=== PATIENT | male | born 1985 | race Caucasian/White ===

== ENCOUNTER 2021-07-08 14:25 | Emergency (ER) | payer OTHER ==
[2021-07-08 15:04] LABS: BASOPHIL 1.1 % (0-2); HCT 41.8 % (42.0-52.0); HGB 13.9 g/dl (13.2-18.0); LYMPHOCYTE 38.6 % (15-48); MCH 30.5 pg (25.0-31.0); MCHC 33.3 g/dL (32.0-36.0); MCV 91.7 fL (78.0-100.0); MPV 10.1 fL (6.0-9.5); NEUTROPHIL 48.1 % (41-80); NRBC 0; PLT 241 K/uL (150-400); RBC 4.56 M/uL (4.70-6.00); RDW 12.2 % (11.5-14.0); WBC 5.7 K/uL (4.0-10.5)
[2021-07-08 15:25] LABS: BUN/CREAT RATIO (CALC) 9.5 RATIO; CREATININE 0.95 mg/dL (0.67-1.17); POTASSIUM 3.7 mmol/L (3.5-5.1)
[2021-07-08 15:26] LABS: BILIRUBIN NEGATIVE (NEGATIVE); BLOOD NEGATIVE Ery/uL (NEGATIVE); CLARITY HAZY (CLEAR); COLOR YELLOW (YELLOW); GLUCOSE (U) NORMAL (NORMAL); LEUKOCYTES NEGATIVE Leu/uL (NEGATIVE); NITRITE NEGATIVE (NEGATIVE); PROTEIN NEGATIVE (NEGATIVE); SPECIFIC GRAVITY 1.015 (1.001-1.030); UROBILINOGEN 0.2 mg/dL (0.2-1.0); pH 7.5 (5.0-9.0)
[2021-07-08 15:29] LABS: AMPHETAMINES POSITIVE (NEGATIVE); BARBITURATES NEGATIVE (NEGATIVE); ECSTASY (MDMA) NEGATIVE (NEGATIVE); MARIJUANA (THC) NEGATIVE (NEGATIVE); METHADONE NEGATIVE (NEGATIVE); OPIATES NEGATIVE (NEGATIVE)
[2021-07-08 15:30] LABS: OXYCODONE NEGATIVE (NEGATIVE)
== END 2021-07-08 17:25 | disposition home or self-care (01) ==
LOC: FER 14:25
PROVIDERS: Nurse Practitioner Family
DX: T50.901A Poisoning by unspecified drugs, medicaments and biological substances, accidental (unintentional), initial encounter (principal); R40.20 Unspecified coma; F19.90 Other psychoactive substance use, unspecified, uncomplicated; Z88.1 Allergy status to other antibiotic agents; Y92.524 Gas station as the place of occurrence of the external cause; Z79.899 Other long term (current) drug therapy
CPT/HCPCS: 36415; 80048; 80305; 81003; 85025; 99284; J7030